=== PATIENT | female | born 1955 | race Caucasian/White ===

== ENCOUNTER → 2020-08-02 | Outpatient (CLI) | payer OTHER ==
[~2020-08-02] MED LIST: AUGMENTIN 875-1 EACH PO; BACTRIM DS TAB1 EACH PO; DEXILANT60 MG PO; FERROUS SULFAT325 M2 PO; K-DUR TAB 20 M20 MEQ PO; KEFLEX CAP 500500 MG PO; LASIX40 MG PO; MIRAPEX ER1.5 MG PO; WELLBUTRIN XL300 M1 PO; ZOLOFT100 MG PO
== END ==
LOC: MAMO 07-27 10:00 → EXRD 07-27 11:00 → MAMO 08:30
DX: Z12.31 Encounter for screening mammogram for malignant neoplasm of breast (principal); M81.0 Age-related osteoporosis without current pathological fracture; M85.89 Other specified disorders of bone density and structure, multiple sites
CPT/HCPCS: 77080

== ENCOUNTER 2021-05-10 10:51 | Inpatient (IN) | payer OTHER ==
[~2021-05-10] VITALS: Ht 152.4 cm; Wt 121.6 kg
[~2021-05-10 10:51] MED LIST changes: +DEXILANT30 MG PO; -DEXILANT60 MG PO; -MIRAPEX ER1.5 MG PO; +MIRAPEX1 MG PO
[2021-05-10 11:44] LABS: HEMOGLOBIN 13.5 gm/dl (12.3-15.3); RED BLOOD COUNT 4.59 M/UL (4.00-5.10); WHITE BLOOD COUNT 9.2 K/UL (4.5-11.0)
[2021-05-10 12:09] LABS: BUN/CREATININE RATIO 14 (0-10)
[2021-05-10] MEDS ORDERED: HYDROXYZINE PAM25 MG PO (15:03)
[2021-05-10] MEDS ORDERED: MYRBETRIQ50 MG PO (15:03)
[2021-05-10] MEDS ORDERED: VENLAFAXINE HCL75 M2 PO (15:04)
[2021-05-10] MEDS ORDERED: LORATADINE10 MG PO (15:04)
[2021-05-11 08:05] LABS: HEMOGLOBIN 12.7 gm/dl (12.3-15.3); RED BLOOD COUNT 4.51 M/UL (4.00-5.10)
[2021-05-11 08:22] LABS: BUN/CREATININE RATIO 13 (0-10)
[2021-05-12 08:14] LABS: RHEUMATOID ARTHRITIS FACTOR <10.0 IU/mL (<14.0)
[2021-05-12] MEDS ORDERED: ATORVASTATIN CA20 MG PO (09:49)
[2021-05-12] MEDS ORDERED: ASPIRIN EC81 MG PO (09:49)
[2021-05-12 13:14] LABS: ANTI-CENTROMERE B ANTIBODIES <0.2 AI (0.0-0.9); ANTI-DNA (DS) AB QN 1 IU/mL (0-9); ANTI-JO-1 <0.2 AI (0.0-0.9); ANTICHROMATIN ANTIBODIES <0.2 AI (0.0-0.9); ANTIRIBOSOMAL P ANTIBODIES <0.2 AI (0.0-0.9); ANTISCLERODERMA-70 ANTIBODIES <0.2 AI (0.0-0.9); RNP ANTIBODIES <0.2 AI (0.0-0.9); SJOGREN'S ANTI-SS-A <0.2 AI (0.0-0.9); SJOGREN'S ANTI-SS-B <0.2 AI (0.0-0.9); SMITH ANTIBODIES <0.2 AI (0.0-0.9); SMITH/RNP ANTIBODIES <0.2 AI (0.0-0.9)
[2021-05-13 09:13] LABS: LUPUS REFLEX INTERPRETATION Comment: (.); PT 10.6 sec (9.1-12.0); PT 1:1NP 10.6 sec (9.1-12.0); THROMBIN TIME 16.8 sec (0.0-23.0)
[2021-05-16 11:09] LABS: DSDNA CRITHIDIA LUCILIAE IFA Negative (Negative)
== END 2021-05-12 14:04 | disposition home or self-care (01) | DRG 65 ==
LOC: ER1 10:51 → CDU 13:47 → M/S 13:47
PROVIDERS: Physician Assistant; Psychiatry & Neurology Neurology; ADMIT Internal Medicine
DX: I63.332 Cerebral infarction due to thrombosis of left posterior cerebral artery (principal); I50.32 Chronic diastolic (congestive) heart failure; K90.0 Celiac disease; G25.81 Restless legs syndrome; E66.01 Morbid (severe) obesity due to excess calories; K25.9 Gastric ulcer, unspecified as acute or chronic, without hemorrhage or perforation; R29.715 NIHSS score 15; I11.0 Hypertensive heart disease with heart failure; R47.1 Dysarthria and anarthria; K44.9 Diaphragmatic hernia without obstruction or gangrene; K64.8 Other hemorrhoids; Z79.899 Other long term (current) drug therapy; Z98.890 Other specified postprocedural states; Z98.51 Tubal ligation status; Z82.3 Family history of stroke; Z91.81 History of falling; Z79.82 Long term (current) use of aspirin; Z68.30 Body mass index [BMI] 30.0-30.9, adult
CPT/HCPCS: ECHO; 36415; 70450; 70496; 70498; 70551; 80053; 80061; 81001; 81241; 83516; 85025; 85611; 86255; 86431; 92507; 92610; 93005; 93306; 97161; 97165; 99285; G0378; Q0177; Q9967; U0002

== ENCOUNTER → 2021-06-23 | Outpatient (CLI) | payer OTHER ==
[~2021-06-23] MED LIST changes: +ASPIRIN EC81 MG PO; +ATORVASTATIN CA20 MG PO; +HYDROXYZINE PAM25 MG PO; +LORATADINE10 MG PO; +MYRBETRIQ50 MG PO; +VENLAFAXINE HCL75 M2 PO
== END ==
LOC: HEART 5 15:00
DX: R00.0 Tachycardia, unspecified (principal)